=== PATIENT | male | born 1980 | race Caucasian/White ===

== ENCOUNTER 2017-03-14 18:28 | Emergency (ER) | payer OTHER ==
[~2017-03-14] VITALS: Ht 172.7 cm; Wt 80.0 kg
[~2017-03-14 18:28] MED LIST: CIPR-9 PO; HYDR-3534 PO
[2017-03-14 18:36] VITALS: BP 121/65; PULSE 71; RESP 16; TEMP 97.8; O2SAT 95
[2017-03-14] MEDS ORDERED: ECHI125T PO (18:47)
[2017-03-14] MEDS ORDERED: OSEL75 PO (19:04)
--- NOTE | 2017-03-14 19:06 | PD ---
HPI Chief Complaint: Cold / Flu Symptoms Time Seen by Provider: 18:58 Travel History International Travel<30 days: No Contact w/Intl Traveler<30days: No Traveled to known affect area: No History of Present Illness HPI 37 year old male here with 2 days of sore throat, myalgias, mild headache. No aggravating or alleviating factors. He lives with his girlfriend and her children. His girlfriend was diagnosed with influenza B yesterday and one of the children was diagnosed with influenza A recently. No other complaints at this time. [facility] [place] Past Medical History Medical History: Denies Significant Hx Diminished Hearing: No Immunizations Current: Yes Tetanus Vaccination: Unknown Influenza Vaccination: No Social History Alcohol Use: Yes (occasional) Tobacco Use: Yes (1 cig per day, mostly ecig) Substance Use: No Allergies-Medications (Allergen,Severity, Reaction): Coded Allergies: No Known Allergies (Unverified Adverse Reaction, Unknown, 03/14/17) Reported Meds & Prescriptions Reported Meds & Active Scripts Active Reported Echinacea 125 Mg Tab 1 Tab PO DAILY Review of Systems Except as stated in HPI: all other systems reviewed are Neg Physical Exam Narrative GENERAL: Well-nourished male in no acute distress SKIN: Warm and dry. HEAD: Atraumatic. Normocephalic. EYES: Pupils equal and round. No scleral icterus. No injection or drainage. ENT: No nasal bleeding or discharge. Mucous membranes pink and moist. NECK: Trachea midline. No JVD. CARDIOVASCULAR: Regular rate and rhythm. No murmur appreciated. RESPIRATORY: No accessory muscle use. Clear to auscultation. Breath sounds equal bilaterally. GASTROINTESTINAL: Abdomen soft, non-tender, nondistended. Hepatic and splenic margins not palpable. MUSCULOSKELETAL: No obvious deformities. No clubbing. No cyanosis. No edema. NEUROLOGICAL: Awake and alert. No obvious cranial nerve deficits. Motor grossly within normal limits. Normal speech. PSYCHIATRIC: Appropriate mood and affect; insight and judgment normal. Data Data Last Documented VS Vital Signs Date Time Temp Pulse Resp B/P (MAP) Pulse Ox O2 Delivery O2 Flow Rate FiO2 03/14/17 18:36 97.8 71 16 121/65 (83) 95 Orders Orders Ed Discharge Order (03/14/17 19:03) [facility] Medical Decision Making Medical Screen Exam Complete: Yes Emergency Medical Condition: Yes Medical Record Reviewed: Yes Differential Diagnosis Influenza, bronchitis, pneumonia, pharyngitis, tonsillitis Narrative Course Physical examination is reassuring. His history is most consistent with influenza. Discussed the pros and cons of Tamiflu and he will be discharged with a prescription. Diagnosis Primary Impression: Viral syndrome Additional Instructions: Medication as prescribed. Stay well hydrated and well-nourished. Take over-the -counter Tylenol or Motrin for fever per dosing instructions on the bottle. Follow-up with primary care physician as needed. Return for any emergent medical conditions. Med/Other Pt SpecificInfo: Prescription(s) given Scripts Oseltamivir (Tamiflu) 75 Mg Cap 75 MG PO BID for Mgmt Viral Infection for 5 Days, #10 CAP 0 Refills Prov: Fred Galvez MD 03/14/17 Disposition: 01 DISCHARGE HOME Condition: Stable Benjamin Garcia Mar 14, 2017 19:06
== END 2017-03-14 19:23 | disposition home or self-care (01) ==
LOC: PHEFT 18:28
DX: B34.9 Viral infection, unspecified (principal); M79.1 Myalgia; Z72.0 Tobacco use
CPT/HCPCS: 99283

== ENCOUNTER 2017-03-26 11:43 | Emergency (ER) | payer OTHER ==
[~2017-03-26] VITALS: Ht 172.7 cm; Wt 76.0 kg
[~2017-03-26 11:43] MED LIST changes: -CIPR-9 PO; +ECHI125T PO; -HYDR-3534 PO; +OSEL75 PO
[2017-03-26 11:45] VITALS: BP 124/65; PULSE 104; RESP 16; TEMP 98.2; O2SAT 96
[2017-03-26] MEDS ORDERED: PRED20 PO (12:11)
[2017-03-26] MEDS ORDERED: ALBU6.7H INH (12:11)
[2017-03-26] MEDS ORDERED: ZITHTAB PO (12:11)
--- NOTE | 2017-03-26 12:13 | PD ---
HPI Chief Complaint: Cold / Flu Symptoms Time Seen by Provider: 12:02 Travel History International Travel<30 days: No Contact w/Intl Traveler<30days: No Traveled to known affect area: No History of Present Illness HPI 37-year-old male presents to the emergency department for evaluation of cold symptoms for approximately 10 days. Reports productive cough, nasal congestion , sinus pressure. He denies any current fevers or chills. No shortness of breath or chest pain. No abdominal pain. Reports slight nausea from the mucus , no vomiting or diarrhea. Patient reports no chronic medical problems and takes no prescribed medications. No exacerbating or alleviating factors. Moderate severity. PFSH Past Medical History Diminished Hearing: No Immunizations Current: Yes Influenza Vaccination: No Social History Alcohol Use: Yes (occasional) Tobacco Use: Yes (1 cig per day, mostly ecig) Substance Use: No Allergies-Medications (Allergen,Severity, Reaction): Coded Allergies: No Known Allergies (Unverified Adverse Reaction, Unknown, 03/26/17) Reported Meds & Prescriptions Reported Meds & Active Scripts Active No Active Prescriptions or Reported Medications Review of Systems Except as stated in HPI: all other systems reviewed are Neg Physical Exam Narrative GENERAL: Well-nourished, well-developed male patient, ambulatory. Afebrile. SKIN: Focused skin assessment warm/dry. HEAD: Normocephalic. ENT: Mucosa pink and moist. No erythema or exudates. No uvular edema. No uvular , palatal, or tonsillar deviation. Airway patent. Nasal turbinates appear normal without nasal blood, purulent drainage or septal hematoma. Right tympanic membrane is erythematous with loss of landmarks. EYES: No scleral icterus. No injection or drainage. NECK: Supple, trachea midline. No JVD or lymphadenopathy. CARDIOVASCULAR: Regular rate and rhythm without murmurs, gallops, or rubs. RESPIRATORY: Breath sounds equal bilaterally. No accessory muscle use. Lungs sounds with slight expiratory wheezes noted at the apices, resolved with cough. GASTROINTESTINAL: Abdomen soft, non-tender, nondistended. MUSCULOSKELETAL: No cyanosis, or edema. BACK: Nontender without obvious deformity. No CVA tenderness. Data Data Last Documented VS Vital Signs Date Time Temp Pulse Resp B/P (MAP) Pulse Ox O2 Delivery O2 Flow Rate FiO2 03/26/17 11:45 98.2 104 16 124/65 (84) 96 Orders Orders Prednisone (Deltasone) (03/26/17 12:15) [facility] Medical Decision Making Medical Screen Exam Complete: Yes Emergency Medical Condition: Yes Medical Record Reviewed: Yes Differential Diagnosis URI versus bronchitis versus pneumonia Narrative Course 37-year-old male presents to the emergency department for violation of cold symptoms for 10 days. Vital signs are stable patient appears well. Patient is given prednisone 60 mg by mouth the emergency department. He'll be discharged with a prescription for prednisone, azithromycin, albuterol inhaler. He is encouraged to call the primary care physician. He is return here for any acute worsening of symptoms. The patient was discharged in stable condition with instructions, including return instructions and follow up instructions. Diagnosis Primary Impression: URI (upper respiratory infection) Qualified Codes: J06.9 - Acute upper respiratory infection, unspecified Referrals: Primary Care Physician call for appointment Patient Instructions: General Instructions, Upper Respiratory Infection (ED) Additional Instructions: Take antibiotic as directed until gone. Start this today. Take prednisone as directed. Start this tomorrow. Use albuterol inhaler as directed as needed for shortness of breath/wheezing. Follow-up with your primary care physician. Return to the emergency department for any acute worsening of symptoms. Med/Other Pt SpecificInfo: Prescription(s) given Scripts Albuterol 6.7 GM Inh (Proventil Hfa 6.7 GM Inh) 90 Mcg/Act Aer 1 PUFF INH Q4H Y for SHORTNESS OF BREATH, #1 INHALER 0 Refills Prov: Bernie Ballard 03/26/17 Prednisone (Prednisone) 20 Mg Tab 40 MG PO DAILY for 4 Days, #8 TAB 0 Refills Prov: Bernie Ballard 03/26/17 Azithromycin (Zithromax Z-Ashwin) 250 Mg Dspk 250 MG PO DIRECTED for Infection, #1 DSPK 0 Refills 500 MG (2 tabs) day 1, then 1 tab days 2-5. Prov: Bernie Ballard 03/26/17 Disposition: 01 DISCHARGE HOME Condition: Stable Bernie Ballard Mar 26, 2017 12:13
[2017-03-26] MEDS ORDERED: predniSONE 20 MG TAB PO ONE (12:15)
== END 2017-03-26 12:22 | disposition home or self-care (01) ==
LOC: PHEFT 11:43
DX: J06.9 Acute upper respiratory infection, unspecified (principal); Z72.0 Tobacco use
CPT/HCPCS: 99283; J7512